=== PATIENT | female | born 2000 ===

== ENCOUNTER 2024-09-15 13:18 | Outpatient (REF) | payer OTHER, SELFPAY | END 2024-09-15 13:19 | disposition home or self-care (01) | LOC: NPINS 13:18 | PROVIDERS: PCP Nurse Practitioner Women's Health; Visit Provider Nurse Practitioner Women's Health | DX: Z12.4 Encounter for screening for malignant neoplasm of cervix (principal) | CPT/HCPCS: 88141; 88142 ==